=== PATIENT | female | born 1945 | race Caucasian/White ===

== ENCOUNTER 2019-06-05 10:37 | Emergency (ER) | payer MEDICARE, BC ==
[~2019-06-05] VITALS: Ht 152.4 cm; Wt 53.1 kg
[2019-06-05 10:57] VITALS: BP 153/98
--- NOTE | 2019-06-05 11:25 | NUR ---
[employer] SALES MANAGER AT BEDSIDE FOR XRAY
--- NOTE | 2019-06-05 12:22 | NUR ---
Patient discharged to home in stable condition. Written and verbal after care instructions given. Patient verbalizes understanding of instruction.
== END 2019-06-05 12:24 | disposition home or self-care (01) ==
LOC: ER 10:38
DX: S42.252A Displaced fracture of greater tuberosity of left humerus, initial encounter for closed fracture (principal); K21.9 Gastro-esophageal reflux disease without esophagitis; Z85.3 Personal history of malignant neoplasm of breast; Z98.890 Other specified postprocedural states; Z60.2 Problems related to living alone; W01.0XXA Fall on same level from slipping, tripping and stumbling without subsequent striking against object, initial encounter; Y93.89 Activity, other specified; Y92.89 Other specified places as the place of occurrence of the external cause; Y99.8 Other external cause status
CPT/HCPCS: 73030-TC

== ENCOUNTER 2020-10-08 15:55 | Emergency (ER) | payer MEDICARE, BC ==
[~2020-10-08] VITALS: Ht 149.9 cm; Wt 53.5 kg
[2020-10-08] MEDS ORDERED: TDAP [DIPH/PERTUSSIS/TET] 0.5 ML VIAL IM ONE ×2 (16:30→16:40)
--- NOTE | 2020-10-08 16:30 | NUR ---
Patient came in to the er c/o Pain and swelling to L hand s/p trip and fall. On room air, breathing evenly and unlabored. Kept comfortable, will continue to monitor accordingly.
[2020-10-08 19:08] VITALS: BP 155/81
--- NOTE | 2020-10-08 19:08 | NUR ---
Patient discharged to home in stable condition. Written and verbal after care instructions given. Patient verbalizes understanding of instruction.
== END 2020-10-08 19:08 | disposition home or self-care (01) ==
LOC: ER 16:09
DX: S62.611A Displaced fracture of proximal phalanx of left index finger, initial encounter for closed fracture (principal); S62.613A Displaced fracture of proximal phalanx of left middle finger, initial encounter for closed fracture; S62.615A Displaced fracture of proximal phalanx of left ring finger, initial encounter for closed fracture; S01.83XA Puncture wound without foreign body of other part of head, initial encounter; Z98.890 Other specified postprocedural states; Z85.3 Personal history of malignant neoplasm of breast; Z60.2 Problems related to living alone; W01.0XXA Fall on same level from slipping, tripping and stumbling without subsequent striking against object, initial encounter; Y93.89 Activity, other specified; Y92.89 Other specified places as the place of occurrence of the external cause; Y99.8 Other external cause status
CPT/HCPCS: 73130-TC; 90715